=== PATIENT | male | born 1990 | race Caucasian/White ===

== ENCOUNTER 2016-10-01 15:55 | Emergency (ER) | payer OTHER ==
[2016-10-01 17:32] VITALS: BP 99/58
[2016-10-01] MEDS ORDERED: oxyCODONE/Acetamin 5/325 MG* TAB PO ONE (18:25)
--- NOTE | 2016-10-01 18:44 | ED ---
Back Pain - HPI Summary HPI Summary: 26 M presents with upper thoracic back pain and right thumb pain for 5 days. He also admits to tingling of his arms. He fell 2 stories off some scaffolding on 09/27 onto his upper back. He says the pain and tingling have been getting worst. His thumb also has been popping but he has full ROM of it. He denies any loss of bowel or bladder, fever, or saddle anasethsia. He denies hitting his head or LOC. He denies any nausea or vomiting. - History of Current Complaint Chief Complaint: EDBackInjuryPain Stated Complaint: BACK INJURY/TINGLING HANDS Time Seen by Provider: 10/01/16 17:53 Pain Intensity: 8 - Allergies/Home Medications Allergies/Adverse Reactions: Allergies Allergy/AdvReac Type Severity Reaction Status Date / Time Amoxicillin Allergy "doesn't Verified 06/09/13 12:48 work for me" Latex Allergy Itching Verified 10/01/16 16:01 PMH/Surg Hx/FS Hx/Imm Hx Endocrine/Hematology History: Denies: Hx Diabetes, Hx Thyroid Disease Cardiovascular History: Denies: Hx Hypertension Respiratory History: Denies: Hx Asthma, Hx Chronic Obstructive Pulmonary Disease (COPD) GI History: Denies: Hx Ulcer Infectious Disease History: No Infectious Disease History: Denies: Hx Clostridium Difficile, Hx Hepatitis, Hx Human Immunodeficiency Virus (HIV), Hx of Known/Suspected MRSA, Hx Shingles, Hx Tuberculosis, Traveled Outside the [place] in Last 30 Days - Family History Known Family History: Negative: Cardiac Disease - Social History Alcohol Use: Occasionally Substance Use Type: Reports: Marijuana Smoking Status (MU): Never Smoked Tobacco Review of Systems Negative: Fever Negative: Chest Pain Negative: Shortness Of Breath Positive: Myalgia - thoracic back pain and right thumb pain All Other Systems Reviewed And Are Negative: Yes Physical Exam Triage Information Reviewed: Yes Vital Signs On Initial Exam: Initial Vitals Temp Pulse Resp BP Pulse Ox 98.4 F 84 16 133/80 100 10/01/16 15:57 10/01/16 15:57 10/01/16 15:57 10/01/16 15:57 10/01/16 15:57 Vital Signs Reviewed: Yes Appearance: Positive: Well-Appearing Skin: Positive: Warm, Dry Head/Face: Positive: Normal Head/Face Inspection Eyes: Positive: Normal, Conjunctiva Clear ENT: Positive: Normal ENT inspection, Pharynx normal, TMs normal Respiratory/Lung Sounds: Positive: Clear to Auscultation, Breath Sounds Present Cardiovascular: Positive: Normal, RRR Musculoskeletal: Positive: Strength/ROM Intact - of back and upper extremities, Other - midline tenderness of T9-T12, tenderness of lower back without midline tenderness of lower back, good batterboard setter strength, capillary refill <2 secs, good pulses, sensation grossly intact, finger tender of IP joint with full ROM Neurological: Positive: Reflexes Intact Diagnostics - Vital Signs Vital Signs Temp Pulse Resp BP Pulse Ox 10/01/16 17:32 98.9 F 65 16 99/58 100 10/01/16 15:57 98.4 F 84 16 133/80 100 - Laboratory Lab Statement: Any lab studies that have been ordered have been reviewed, and results considered in the medical decision making process. - Radiology thumb Xray Interpretation: No Acute Changes Radiology Interpretation Completed By: Radiologist - CT thoracic spine CT Interpretation: No Acute Changes - FINDINGS: There is a mild dorsal scoliosis convex toward the right side. The vertebra are otherwise in normal alignment. No fracture is seen. Disc spaces appear relatively maintained. There is no evidence for spinal canal narrowing. IMPRESSION: NO EVIDENCE FOR FRACTURE. CT Interpretation Completed By: Radiologist Back Pain Course/Dx - Course Course Of Treatment: 26 M presents with thoracic back pain and right thumb pain since falling off scaffolding 5 days ago, no LOC or head injury, neuro exam normal, CT of back normal so suspect tingling is due to muscle spasms in back, thumb xray normal placed in [facility], patient is following up with primary, will send home with prednisone and muscle relaxers, explained if tingling does not go away may need MRI but that can be set up by primary, patient understands and agrees with plan - Diagnoses Differential Diagnosis/HQI/PQRI: Positive: Fracture, Herniated Disc, Strain, Sprain Provider Diagnoses: Upper back pain, Pain of right thumb Discharge - Discharge Plan Condition: Good Disposition: HOME Prescriptions: Cyclobenzaprine TAB* [Flexeril TAB*] 10 mg PO TID PRN #9 tab PRN Reason: Pain Methylprednisolone [Medrol Dosepak 4 MG*] 4 mg PO .SEE JACQUELINE INSTRUCTION #1 packet Patient Education Materials: Back Pain (ED) Forms: *Work Release Referrals: Virginie Lazaro MD [Primary Care Provider] - Additional Instructions: Follow directions on package for Medrol pack Take muscle relaxers three times a day for 3 days Use ibuprofen or Tylenol for pain every 6 hours Keep thumb in husam ice area Follow up with primary within 5 days Return to ED if unable to ambulate or develop any new or worsening symptoms
--- NOTE | 2016-10-01 19:10 | RAD ---
INDICATION: Right thumb injury. TECHNIQUE: 3 views of the right thumb were obtained. FINDINGS: The bones are in normal alignment. No fracture is seen. Joint spaces appear maintained. IMPRESSION: NO EVIDENCE FOR FRACTURE.
[2016-10-01] MEDS ORDERED: Ondansetron ODT TAB* 4 MG PO ONE (19:14)
--- NOTE | 2016-10-01 19:17 | RAD ---
INDICATION: Trauma, back pain. COMPARISON: There are no prior studies available for comparison. TECHNIQUE: Contiguous axial sections were obtained beginning above the C7 vertebra and scanning through the T12 vertebra. Images were reconstructed in the sagittal and coronal planes. FINDINGS: There is a mild dorsal scoliosis convex toward the right side. The vertebra are otherwise in normal alignment. No fracture is seen. Disc spaces appear relatively maintained. There is no evidence for spinal canal narrowing. IMPRESSION: NO EVIDENCE FOR FRACTURE.
== END 2016-10-01 20:13 | disposition home or self-care (01) ==
LOC: ED 15:55
DX: M54.9 Dorsalgia, unspecified (principal); M79.644 Pain in right finger(s); R20.2 Paresthesia of skin
CPT/HCPCS: 72128; 99282; A9270-GY

== ENCOUNTER → 2017-04-23 18:49 | Emergency (ER) | payer MEDICAID, OTHER ==
[~2017-04-23 18:49] MED LIST: Ibuprofen TAB* 600 MG PO ONE; LORazepam TAB(*) 1 MG PO ONE; Nicotine GUM* 2 MG PO PRN; Ondansetron ODT TAB* 4 MG PO ONE
--- NOTE | 2017-04-23 20:11 | ED ---
Psychiatric Complaint - HPI Summary HPI Summary: 26 male presents with complaints of anxiety, insomnia with associated, nausea, diarrhea and chest discomfort for the past 4 months. Patient used to be on medication however hasn't been recently. Describes chest pain to be stabbing and constant without radiation, left sided. Anxiety makes it worse, nothing makes it better. No cardiac history or risk factors. Went to [facility] for treatment before coming to ED however was only referred to a psychiatrist and not given any medication or help. Patient states he thinks "logically" and states he thinks about drinking a lot of alcohol or taking drugs in order to make the pain go away and to feel euphoric. Has not intentionally hurt himself however has had ideations. Admits to taking one oxycodone and marijuana use today in order to make the pain go away. States he cries often without known cause. Has had a lot of stressors. Because of the symptomatic anxiety he has not been able keep a job, or social life. Denies homicidal ideations. Denies abdominal pain, fever, chills, difficulty breathing. Admits to panic attacks where he does experience some SOB. 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 States if his anxiety was just medicated he feels he would be having a much better life. Feels the anxiety is getting much worse. Denies hallucinations or hearing voices. No PMHx other than sleep apnea and anxiety. - History Of Current Complaint Chief Complaint: EDMentalHealth Time Seen by Provider: 04/23/17 19:08 Hx Obtained From: Patient Onset/Duration: Sudden Onset, Lasting Weeks - 4 months, Still Present, Worse Since Timing: Constant Severity Initially: Moderate Severity Currently: Severe Character: Depressed, Anxious Aggravating Factor(s): Recent Stress, Other - no medication or stable psychiatrist/counseling Alleviating Factor(s): Medication Associated Signs And Symptoms: Positive: Social Withdrawal Related History: Positive For: Prior Psychiatric Issues - anxiety/depression Has Suicidal: Reports: Thoughts, With A Plan - takes "downers" however has not done it in intention to over dose or hurt himself. Denies: Demonstrates Gesture , Has Prior Attempt(s) Has Homicidal: Denies: Thoughts, With A Plan, Demonstrates Gesture, Has Prior Attempt(s) Recent Stressor(s): anxiety symptoms - Allergies/Home Medications Allergies/Adverse Reactions: Allergies Allergy/AdvReac Type Severity Reaction Status Date / Time Amoxicillin Allergy "doesn't Verified 04/23/17 18:53 work for me" Latex Allergy Itching Verified 04/23/17 18:53 PMH/Surg Hx/FS Hx/Imm Hx Endocrine/Hematology History: Denies: Hx Diabetes, Hx Thyroid Disease Cardiovascular History: Denies: Hx Hypertension Respiratory History: Reports: Hx Sleep Apnea Denies: Hx Asthma, Hx Chronic Obstructive Pulmonary Disease (COPD) GI History: Denies: Hx Ulcer Psychiatric History: Reports: Hx Anxiety - Surgical History Surgery Procedure, Year, and Place: none - Immunization History Immunizations Up to Date: Yes Infectious Disease History: Denies: Hx Clostridium Difficile, Hx Hepatitis, Hx Human Immunodeficiency Virus (HIV), Hx of Known/Suspected MRSA, Hx Shingles, Hx Tuberculosis, Traveled Outside the [place] in Last 30 Days - Family History Known Family History: Negative: Cardiac Disease - Social History Alcohol Use: Occasionally Substance Use Type: Reports: Marijuana, Other - opiates, "downers" Smoking Status (MU): Never Smoked Tobacco Review of Systems Constitutional: Negative Positive: Chest Pain Positive: Shortness Of Breath Positive: Diarrhea, Nausea Genitourinary: Negative Musculoskeletal: Negative Skin: Negative Neurological: Negative Positive: Anxious All Other Systems Reviewed And Are Negative: Yes Physical Exam Triage Information Reviewed: Yes Vital Signs On Initial Exam: Initial Vitals Temp Pulse Resp BP Pulse Ox 98.9 F 79 16 134/73 98 04/23/17 18:53 04/23/17 18:53 04/23/17 18:53 04/23/17 18:53 04/23/17 18:53 Vital Signs Reviewed: Yes Appearance: Positive: Well-Appearing - appears anxious, tearful , depressed, No Pain Distress, Well-Nourished Skin: Positive: Warm, Skin Color Reflects Adequate Perfusion, Dry. Negative: Cold, Numb, Cyanosis @, Jaundiced, Pale, Erythema @ Head/Face: Positive: Normal Head/Face Inspection Eyes: Positive: Normal, EOMI, DAVIS, Conjunctiva Clear ENT: Positive: Hearing grossly normal, Pharynx normal, TMs normal Dental: Negative: Cervical Lymphadenopathy Neck: Positive: Supple, Nontender Respiratory/Lung Sounds: Positive: Clear to Auscultation, Breath Sounds Present. Negative: Decreased Breath Sounds, Rales, Rhonchi, Wheezes Cardiovascular: Positive: Normal, RRR, Pulses are Symmetrical in both Upper and Lower Extremities. Negative: Murmur, Rub Abdomen Description: Positive: Nontender, No Organomegaly, Soft. Negative: CVA Tenderness (R), CVA Tenderness (L), Distended, Guarding, McBurney's Point Tenderness, Peritoneal Signs, Pulsatile Mass Bowel Sounds: Positive: Present Musculoskeletal: Positive: Normal, Strength/ROM Intact Neurological: Positive: Normal, Sensory/Motor Intact, Alert, Oriented to Person Place, Time Psychiatric: Positive: Anxious, Depressed - Danica Coma Scale Best Eye Response: 4 - Spontaneous Best Motor Response: 6 - Obeys Commands Best Verbal Response: 5 - Oriented Diagnostics - Vital Signs Vital Signs Temp Pulse Resp BP Pulse Ox 04/23/17 18:53 98.9 F 79 16 134/73 98 - Laboratory Result Diagrams: 04/23/17 20:43 04/23/17 20:43 Lab Statement: Any lab studies that have been ordered have been reviewed, and results considered in the medical decision making process. - EKG EKG Cardiac Rate: NL EKG Rhythm: Sinus Rhythm ST Segment: Normal Ectopy: None EKG Interpretation: NSR, no STEMI, early repol EKG Comparison: No Significant Change Re-Evaluation - Re-Evaluation First Eval Re-Evaluation Time: 21:00 Change: Improved - had relief after medications Course/Dx - Course Course Of Treatment: troponin and EKG obtained and unremarkable. labs and urinalysis obtained, including drug tox. patient was medically cleared for [facility]. No concern for any cardiac etiology at this time. appears to be suffering from severe generalized anxiety disorder that is causing symptoms of nausea, diarrhea and chest discomfort. Effecting daily activities. patient educated on cardiopulmonary etiologies and worsening signs and symptoms. given zofran for nausea and ativan to help with anxiety/symptoms. ibuprofen for discomfort/pain. had some relief. still felt as though anxiety not completely controlled. Spoke with [facility] patient will be discharged with diagnosis of anxiety per Dr Trujillo at 2: 00am. - Differential Dx/Clinical Impression Differential Diagnosis/HQI/PQRI: Positive: Anxiety, Depression, Other - manic Provider Diagnosis: Anxiety - Physician Notifications Discussed Care Of Patient With: Dr Cassandra GONZALEZ Time Discussed With Above Provider: 14:00 Instructed by Provider To: Have Pt Call For Appt. - outpatient therapy Patient Is Medically Stable For: Psych Evaluation Discharge - Discharge Plan Condition: Stable Disposition: HOME Referrals: Virginie Lazaro MD [Primary Care Provider] -
[2017-04-23 20:26] LABS: Urine Bacteria Absent (Absent); Urine Bilirubin Negative (Negative); Urine Glucose Negative (Negative); Urine Nitrite Negative (Negative)
[2017-04-23 20:27] LABS: Benzodiazepine Urine Screen None Detected (None Detect)
[2017-04-23 20:52] LABS: Hematocrit 42 % (42-52); Hemoglobin 14.6 g/dl (14.0-18.0); Mean Corpuscular HGB Conc 35 g/dl (31-36); Mean Corpuscular Hemoglobin 32 pg (27-31); Mean Corpuscular Volume 92 fL (80-94); Mean Platelet Volume 8 um3 (7.4-10.4); Red Blood Count 4.54 10^6/ul (4.0-5.4); Red Cell Distribution Width 12 % (10.5-15)
[2017-04-23 21:07] LABS: ALT 9 U/L (7-52); AST 14 U/L (13-39); Albumin 4.3 g/dL (3.2-5.2); Alkaline Phosphatase 58 U/L (34-104); Anion Gap 4 mmol/L (2-11); BUN/Creatinine Ratio 17.1 (8-20); Blood Urea Nitrogen 14 mg/dL (6-24); CO2 Carbon Dioxide 28 mmol/L (22-32); Calcium 9.1 mg/dL (8.6-10.3); Chloride 105 mmol/L (101-111); EGFR African American 148.4 (>60); EGFR Non-African American 115.4 (>60); Globulin 2.4 g/dL (2-4); Glucose 95 mg/dL (70-100); Potassium 3.5 mmol/L (3.5-5.0); Sodium 137 mmol/L (133-145); Total Protein 6.7 g/dL (6.4-8.9)
[2017-04-23 21:27] LABS: Acetaminophen < 15 mcg/mL; Alcohol < 10 mg/dL (<10); Salicylate < 2.50 mg/dL (<30)
[2017-04-23 21:38] LABS: TSH (Thyroid Stimulating Horm) 0.68 mcIU/mL (0.34-5.60)
[2017-04-24 08:34] VITALS: BP 117/69
== END | disposition home or self-care (01) ==
LOC: ED 18:49
DX: F41.9 Anxiety disorder, unspecified (principal); R07.9 Chest pain, unspecified; R06.02 Shortness of breath; R19.7 Diarrhea, unspecified; R11.0 Nausea
CPT/HCPCS: 36415; 80053; 80307; 80320; 80329; 81003; 81015; 84443; 84484; 85025; 93005; 99284; A9270-GY; G0480

== ENCOUNTER 2017-11-01 18:10 | Emergency (ER) | payer MEDICAID, OTHER ==
--- NOTE | 2017-11-01 20:54 | ED ---
Complex/Multi-Sys Presentation - HPI Summary HPI Summary: Patient presents to the ED with a request for medication refills. He is requesting oxycodone, diazepam and Zofran. He states he has fibromyalgia and PTSD causing "25 out of 10 on a pain scale". He is seen by a psychiatrist who is prescribing the oxycodone's and he is trying to get into see a physician. He is extremely agitated on arrival. He states he needs more than what they are getting him and he is also trying to get medical marijuana. He appears to be under the influence of narcotics as well as benzos and possibly other prescribed or nonprescribed medications. - History Of Current Complaint Chief Complaint: EDPrescriptionNeeded Time Seen by Provider: 11/01/17 18:39 Hx Obtained From: Patient Timing: Constant Severity Currently: Severe Severity Initially: Severe - Allergies/Home Medications Allergies/Adverse Reactions: Allergies Allergy/AdvReac Type Severity Reaction Status Date / Time MS Amoxicillin [Amoxicillin] Allergy "doesn't Verified 04/23/17 18:53 work for me" MS Latex [Latex] Allergy Itching Verified 04/23/17 18:53 PMH/Surg Hx/FS Hx/Imm Hx Previously Healthy: Yes Endocrine/Hematology History: Denies: Hx Diabetes, Hx Thyroid Disease Cardiovascular History: Denies: Hx Hypertension Respiratory History: Reports: Hx Sleep Apnea Denies: Hx Asthma, Hx Chronic Obstructive Pulmonary Disease (COPD) GI History: Denies: Hx Ulcer Psychiatric History: Reports: Hx Anxiety Denies: Hx of Violent Episodes Against Others - Surgical History Surgery Procedure, Year, and Place: none - Immunization History Hx Pertussis Vaccination: No Immunizations Up to Date: Unable to Obtain/Confirm Infectious Disease History: No Infectious Disease History: Denies: Hx Clostridium Difficile, Hx Hepatitis, Hx Human Immunodeficiency Virus (HIV), Hx of Known/Suspected MRSA, Hx Shingles, Hx Tuberculosis, Traveled Outside the [place] in Last 30 Days - Family History Known Family History: Negative: Cardiac Disease - Social History Occupation: Unemployed, Disabled Lives: Alone Alcohol Use: Occasionally Hx Substance Use: Yes Substance Use Type: Reports: Marijuana, Other Substance Use Comment - Amount & Last Used: benzos Hx Tobacco Use: No Smoking Status (MU): Never Smoked Tobacco Review of Systems Constitutional: Negative Negative: Fever, Chills, Fatigue, Skin Diaphoresis Eyes: Negative Cardiovascular: Negative Respiratory: Negative Genitourinary: Negative Positive: no symptoms reported, see HPI Positive: Arthralgia, Myalgia Neurological: Negative Positive: Anxious, Other - angry All Other Systems Reviewed And Are Negative: Yes Physical Exam Triage Information Reviewed: Yes Vital Signs On Initial Exam: Initial Vitals Temp Pulse Resp BP Pulse Ox 98.6 F 100 18 122/84 99 11/01/17 18:14 11/01/17 18:14 11/01/17 18:14 11/01/17 18:14 11/01/17 18:14 Vital Signs Reviewed: Yes Appearance: Positive: Well-Appearing, Well-Nourished Skin: Positive: Skin Color Reflects Adequate Perfusion Head/Face: Positive: Normal Head/Face Inspection Eyes: Positive: EOMI, DAVIS, Conjunctiva Clear Neck: Positive: Supple, No Lymphadenopathy Respiratory/Lung Sounds: Positive: Clear to Auscultation, Breath Sounds Present Cardiovascular: Positive: RRR, Pulses are Symmetrical in both Upper and Lower Extremities Musculoskeletal: Positive: Normal, Strength/ROM Intact Neurological: Positive: Speech Normal Psychiatric: Positive: Patient Uncooperative for Exam Diagnostics - Vital Signs Vital Signs Temp Pulse Resp BP Pulse Ox 11/01/17 18:14 98.6 F 100 18 122/84 99 - Laboratory Lab Statement: Any lab studies that have been ordered have been reviewed, and results considered in the medical decision making process. Complex Multi-Symp Course/Dx Course Of Treatment: During the course of treatment, the patient is shown the ice stop report. I stop shows he has picked up his oxycodone as recently as for a 14 day supply (3 days left on), his diazepam on 10/13/17 for a 30 day supply (8 days left). I have discussed this with him and have voiced I am unable to prescribe him these medications as he has misused his prescription and still has days left. He states he is out and will need more. He continues to become agitated and continues to yell at the staff registered nurse and provider, stating he would like a physician to see him. Dr. Bartlett to see the patient as well who also explains that he would be unable to provide him with the 2 prescriptions he is requesting. We have offered other medications to help him during this time including Atarax and his sumatriptan. I have asked him to stay in the room while I try to get his prescriptions together, and after I have sent the prescriptions to [facility], patient again becomes agitated, yelling at the nursing staff and leads. I then proceeded to call [facility] to cancel the prescriptions. - Diagnoses Provider Diagnoses: Opioid dependence Discharge - Discharge Plan Condition: Stable Disposition: HOME Patient Education Materials: Chronic Pain (ED), Opioid Dependence (ED) Referrals: Virginie Lazaro MD [Primary Care Provider] - Additional Instructions: Follow up with your PCP [facility] for opiod dependence and abuse [phone]
[2017-11-01 21:20] VITALS: BP 0/0
== END 2017-11-01 20:00 | disposition home or self-care (01) ==
LOC: ED 18:10
DX: F11.20 Opioid dependence, uncomplicated (principal)
CPT/HCPCS: 99282

== ENCOUNTER 2018-03-09 18:00 | Emergency (ER) | payer OTHER ==
[2018-03-09] MEDS ORDERED: NS 0.9% 1000 ML* 1,000 ML IV ONE (18:22)
[2018-03-09] MEDS ORDERED: Ondansetron ODT TAB* 4 MG SL ONE (19:01)
[2018-03-09 19:05] LABS: ABS Basophils 0.1 10^3/ul (0-0.2); ABS Eosinophils 0 10^3/ul (0-0.6); ABS Lymphocytes 1.5 10^3/ul (1.0-4.8); ABS Monocytes 1.2 10^3/ul (0-0.8); ABS Neutrophils 12.2 10^3/ul (1.5-7.7); ABS Nucleated RBC 0 10^3/ul; Eosinophil % 0.1 % (0-6); Hematocrit 48 % (42-52); Hemoglobin 16.3 g/dl (14.0-18.0); Lymphocyte % 9.9 % (25-47); Mean Corpuscular HGB Conc 34 g/dl (31-36); Mean Corpuscular Hemoglobin 32 pg (27-31); Mean Corpuscular Volume 95 fL (80-94); Mean Platelet Volume 7.7 um3 (7.4-10.4); Nucleated Red Blood Cells % 0; Platelet Count 250 10^3/ul (150-450); Red Blood Count 5.07 10^6/ul (4.00-5.40); Red Cell Distribution Width 14 % (10.5-15)
--- NOTE | 2018-03-09 19:05 | ED ---
Substance Abuse/Use - HPI Summary HPI Summary: Patient is a 27-year-old male with a history of opioid addiction and anxiolytic addiction as well as chronic pain presenting to the ED with concern over "passing out." He is requesting pain medication and Ativan on arrival. He states he has been out in the sun all day and has not been drinking fluids. He states he then passed out and awoke approximately 1 minute later. Denies any cardiac history. He states he feels otherwise at his baseline, however he is endorsing 10/10 pain. - History Of Current Complaint Chief Complaint: EDSyncope Stated Complaint: SYNCOPE /SEIZURE Time Seen by Provider: 03/09/18 18:08 Hx Obtained From: Patient Ingestion History: Type/Name Of Drug - opioids and anxiolytics - daily use Overdose Characteristics: Oral Timing Of Abuse: Daily Severity Initially: Moderate Severity Currently: Moderate Alleviating Factor(s): Nothing Associated Signs And Symptoms: Negative Related Hx: Drug/Alcohol Last Used @ - daily - Risk Factor(s) Completed Suicide Risk Factors: Male - Allergies/Home Medications Allergies/Adverse Reactions: Allergies Allergy/AdvReac Type Severity Reaction Status Date / Time latex Allergy Itching Verified 12/01/17 17:11 PMH/Surg Hx/FS Hx/Imm Hx Previously Healthy: Yes Endocrine/Hematology History: Denies: Hx Diabetes, Hx Thyroid Disease Cardiovascular History: Denies: Hx Hypertension Respiratory History: Reports: Hx Sleep Apnea Denies: Hx Asthma, Hx Chronic Obstructive Pulmonary Disease (COPD) GI History: Denies: Hx Ulcer Psychiatric History: Reports: Hx Anxiety, Hx Post Traumatic Stress Disorder - per pt, Hx Substance Abuse - opiate dependence - takes 60mg oxycodone daily Denies: Hx of Violent Episodes Against Others - Surgical History Surgery Procedure, Year, and Place: none - Immunization History Hx Pertussis Vaccination: No Immunizations Up to Date: Unable to Obtain/Confirm Infectious Disease History: No Infectious Disease History: Denies: Hx Clostridium Difficile, Hx Hepatitis, Hx Human Immunodeficiency Virus (HIV), Hx of Known/Suspected MRSA, Hx Shingles, Hx Tuberculosis, Traveled Outside the [place] in Last 30 Days - Family History Known Family History: Negative: Cardiac Disease - Social History Occupation: Unemployed Lives: Alone Alcohol Use: Weekly Hx Substance Use: Yes Substance Use Type: Reports: Marijuana, Prescribed Substance Use Comment - Amount & Last Used: benzos Hx Tobacco Use: No Smoking Status (MU): Current Every Day Smoker Review of Systems Negative: Fever, Chills, Skin Diaphoresis Negative: Blurred Vision, Diplopia, Drainage Negative: Palpitations, Chest Pain Negative: Shortness Of Breath Genitourinary: Negative Positive: no symptoms reported, see HPI Negative: Arthralgia Negative: Rash, Bruising Positive: Weakness Psychological: Normal All Other Systems Reviewed And Are Negative: Yes Physical Exam Triage Information Reviewed: Yes Vital Signs On Initial Exam: Initial Vitals Temp Pulse Resp BP Pulse Ox 99.1 F 71 16 102/57 100 03/09/18 18:12 03/09/18 18:12 03/09/18 18:12 03/09/18 18:12 03/09/18 18:12 Vital Signs Reviewed: Yes Appearance: Positive: Well-Appearing, Well-Nourished Skin: Positive: Warm, Skin Color Reflects Adequate Perfusion Eyes: Positive: Other: - mydriasis ENT: Positive: Pharynx normal Respiratory/Lung Sounds: Positive: Clear to Auscultation, Breath Sounds Present Cardiovascular: Positive: RRR Musculoskeletal: Positive: Normal Neurological: Positive: Speech Normal Psychiatric: Positive: Normal, Affect/Mood Appropriate Diagnostics - Vital Signs Vital Signs Temp Pulse Resp BP Pulse Ox 03/09/18 18:12 99.1 F 71 16 102/57 100 - Laboratory Result Diagrams: 03/09/18 18:48 Lab Statement: Any lab studies that have been ordered have been reviewed, and results considered in the medical decision making process. Course/Dx - Course Course Of Treatment: Labs obtained and 1 L NS given in the ED. Slightly elevated WBC, likely secondary to dehydration. He states he would like to be discharged home, however he is requesting pain management and Ativan. I discussed that he has a prescription for these and I will not dispense these in the ED. I have also discussed with him regarding his opioid addiction and have offered up the [facility]. He states he is unwilling to do this program and will remain on chronic pain medicine. - Diagnoses Differential Diagnosis/HQI/PQRI: Positive: Other Provider Diagnoses: Opioid abuse, daily use, Dehydration Discharge - Sign-Out/Discharge Documenting (check all that apply): Discharge/Admit/Transfer - Discharge Plan Condition: Stable Disposition: HOME Patient Education Materials: Dehydration (ED) Referrals: Sb Rios MD [Primary Care Provider] - Additional Instructions: Drink plenty of fluids - Billing Disposition and Condition Condition: STABLE Disposition: Home
[2018-03-09 19:17] VITALS: BP 108/62
[2018-03-09 19:22] LABS: EGFR Non-African American 116.1 (>60)
== END 2018-03-09 19:15 | disposition home or self-care (01) ==
LOC: ED 18:00
DX: F11.10 Opioid abuse, uncomplicated (principal); E86.0 Dehydration; F17.210 Nicotine dependence, cigarettes, uncomplicated
CPT/HCPCS: 36415; 80053; 83605; 85025; 96360; 99282; A9270-GY